=== PATIENT | female | born 1970 | race Caucasian/White ===

== ENCOUNTER 2016-07-16 21:00 | Emergency (ER) | payer MEDICAID | END 2016-07-17 00:12 | disposition home or self-care (01) | LOC: ER 21:00 | CPT/HCPCS: 36415; 71010; 80053; 81001; 82947; 85025; 85610; 93005 ==

== ENCOUNTER 2016-08-04 11:18 | Emergency (ER) | payer MEDICAID ==
[2016-08-04] MEDS ORDERED: ONDANSETRON 4 MG VIAL ONE (13:45)
[2016-08-04] MEDS ORDERED: KETOROLAC 30 MG/ML VIAL ONE (13:45)
== END 2016-08-04 15:47 | disposition home or self-care (01) ==
LOC: ER 11:18
DX: R31.29 Other microscopic hematuria (principal); N23 Unspecified renal colic; Z79.899 Other long term (current) drug therapy
CPT/HCPCS: 36415; 74176; 80053; 81001; 85025; 96374; 96375